=== PATIENT | male | born 1970 | race Caucasian/White ===

== ENCOUNTER → 2016-10-08 | Outpatient (CLI) | payer OTHER ==
[2016-10-08 15:38] LABS: CHLORIDE,CL 105 mmol/L (98-110); SODIUM,NA 139 mmol/L (136-146)
== END ==
LOC: MW.CHIM 15:07
PROVIDERS: ATTEND Internal Medicine
DX: E11.9 Type 2 diabetes mellitus without complications (principal); Z86.79 Personal history of other diseases of the circulatory system; E78.00 Pure hypercholesterolemia, unspecified; I10 Essential (primary) hypertension
CPT/HCPCS: 36415; 80053; 80061; 83036; 85025

== ENCOUNTER 2020-10-14 14:14 | Emergency (ER) | payer BC, OTHER ==
[2020-10-14] MEDS ORDERED: Sodium Chloride 0.9% 2.5 ML Syringe FLUSH PRN (14:15)
--- NOTE | 2020-10-14 14:29 | EDM.PDOC ---
ED HPI GENERAL MEDICAL PROBLEM - General Chief Complaint: Chest Pain Stated Complaint: CHEST PAIN Time Seen by Provider: 10/14/20 14:24 Source of Information: Reports: Patient History Limitations: Reports: No Limitations - History of Present Illness INITIAL COMMENTS - FREE TEXT/NARRATIVE: HISTORY AND PHYSICAL: History of present illness: Patient is a 50-year-old male who presents to the emergency room with complaints of chest pain that started approximately 45 minutes prior to arrival. He states over the past several days he has had a generalized cold which included loss of taste and smell recently. Chest pain started to mid chest that radiates down his right arm. He states nothing makes it better or worse. Patient denies any fever, chills, headache, change in vision, syncope or near syncope. Denies any back pain, shortness of breath or cough. Denies any abdominal pain, nausea, vomiting, diarrhea, constipation or dysuria. Has not noted any blood in urine or stool. Patient has been eating and drinking appropriately. Review of systems: As per history of present illness and below otherwise all systems reviewed and negative. Past medical history: As per history of present illness and as reviewed below otherwise noncontributory. Surgical history: As per history of present illness and as reviewed below otherwise noncontributory. Social history: See social history for further information Family history: As per history of present illness and as reviewed below otherwise noncontributory. Physical exam: General: Well developed and well nourished 50-year-old male. Alert and orientated x 3. Nontoxic in appearance and in no acute distress. Vital signs are stable and have been reviewed by me. Nursing notes were reviewed. HEENT: Atraumatic, normocephalic, pupils equal and reactive bilaterally, negative for conjunctival pallor or scleral icterus, mucous membranes moist, TMs normal bilaterally, throat clear, neck supple, nontender, trachea midline. No drooling or trismus noted. No meningeal signs. No hot potato voice noted. Lungs: Clear to auscultation bilaterally. No wheezes, rales, or rhonchi. Chest nontender. Normal work of breathing, no accessory muscles used. Heart: S1S2, regular rate and rhythm without overt murmur, gallops, or rubs. No JVD. No peripheral edema Abdomen: Soft, nondistended, nontender. Normoactive bowel sounds. Negative for masses or costovertebral tenderness. Skin: Intact, warm, dry. No lesions or rashes noted. Hematologic: No petechiae or purpra. Mucosa appropriate color and normal nail bed color and refill. Extremities: Atraumatic, moves all extremities per self without difficulty or deficits, negative for cords or calf pain. Neurovascular unremarkable. Neuro: Awake, alert, oriented. Cranial nerves II through XII unremarkable. Cerebellum unremarkable. Motor and sensory unremarkable throughout. Exam nonfocal. Psychiatric: Mood and affect are appropriate. Normal thought process. Answering questions appropriately. Notes: *This patient was seen and evaluated during the 2019 SARS-CoV-2 novel coronavirus pandemic period. Community viral transmission is ongoing at time of this encounter and the emergency department is operating under pandemic response procedures. Physical exam is within normal limits. With the recent lost of taste and smell I will test for COVID-19. Cardiac work-up pending. Initial EKG was read and reviewed by Andria. No changes in ST. Initial troponin is negative, positive COVID-19. Since the pain started only 45 minutes to an hour prior to arrival I will repeat a second troponin at 4 hours. Patient is aware and agreeable to plan of care. He states he does not want to stay for admission if the second troponin is negative. Repeat EKG done at this time. Vital signs are stable. Patient's blood sugar and hemoglobin A1c are both elevated. Patient states he is aware of this and has not been compliant with a diabetic diet or taking his medications as directed. At this time he declines wanting further treatment (insulin or adjustment of medication) as he knows he what "needs to do". Patient does appear to get anxious and heart rate does go up into the 100s, at rest he is typically in the 70s to 80s. He is low risk group according to the Wells criteria. Second troponin is elevated at 0.243. He states he is pain free at this time. VSS. I have talked with the patient about today's findings, in addition to providing specific details for plan of care. Reassessment at the time of disposition demonstrates that the patient is in no acute distress. I spoke with Dr Woods at [facility] in [place] about transferring this patient for further care and management as needs cardiology. Chuck is agreeable to accepting this patient. Patient is aware of the need for transfer. Patient will go via ground EMS and will continue to monitor. Diagnostics: CBC, CMP, Troponin, EKG, CXR, COVID Therapeutics: IV fluid, morphine, aspirin, heparin bolus and drip Prescription: None Impression: NSTEMI COVID - 19 Uncontrolled DM Plan: Transfer to [facility] Definitive disposition and diagnosis as appropriate pending reevaluation and review of above. Chest Pain Score (Numeric/FACES): 8 - Related Data Allergies Allergy/AdvReac Type Severity Reaction Status Date / Time shellfish derived Allergy Anaphylactic Verified 10/14/20 18:44 Shock Iodine solution Allergy Anaphylactic Uncoded 10/14/20 18:44 Shock Home Meds: Home Meds Aspirin [Halfprin] 1 tab PO DAILY 06/06/15 [History] Losartan Potassium 1 tab PO BEDTIME 06/06/15 [History] Dapagliflozin Propanediol [Farxiga] 5 mg PO DAILY 10/14/20 [History] sitaGLIPtin Phosphate [Januvia] 25 mg PO DAILY 10/14/20 [History] Past Medical History Cardiovascular History: Reports: Hypertension Respiratory History: Reports: Bronchitis, Recurrent, Sleep Apnea Other Respiratory History: 14 yr history smoking Gastrointestinal History: Reports: GERD, Hemorrhoids, Hepatitis Other Gastrointestinal History: Treat heartburn symptoms with 'rolaids', HX: Hepatitis C, did Interferon and last check was 'Clear' Genitourinary History: Reports: Other (See Below) Other Genitourinary History: Frequent running to bathroom at night, "think it is related to my diabetes" Musculoskeletal History: Reports: Fracture, Osteoarthritis Other Musculoskeletal History: Many fractures, Hand, Elbow, Ankle, Rt Hip, Left Leg, Sternum, Right arm, Jaw. Arthrtis to Hands Psychiatric History: Reports: Anxiety, Depression Endocrine/Metabolic History: Reports: Diabetes, Type II, Obesity/BMI 30+ Hematologic History: Reports: Blood Transfusion(s) - Infectious Disease History Infectious Disease History: Reports: Hepatitis C Other Infectious Disease History: states was treated for Hepatitis C a few years ago - Past Surgical History Cardiovascular Surgical History: Reports: Other (See Below) Other Cardiovascular Surgeries/Procedures: right chest from [facility] GI Surgical History: Reports: Colonoscopy, Other (See Below) Social & Family History - Family History Family Medical History: No Pertinent Family History Cardiac: Reports: CAD Oncologic: Reports: Lung - Caffeine Use Caffeine Use: Reports: Coffee ED ROS GENERAL - Review of Systems Review Of Systems: Comprehensive ROS is negative, except as noted in HPI. ED EXAM, GENERAL - Physical Exam Exam: See Below (See dictation) Course - Vital Signs Last Recorded V/S: Last Vital Signs Temp 98 F 10/14/20 14:20 Pulse 110 H 10/14/20 18:15 Resp 20 10/14/20 14:20 BP 128/98 H 10/14/20 18:15 Pulse Ox 96 10/14/20 18:15 - Orders/Labs/Meds Orders: Active Orders 24 hr Category Date Time Status Cardiac Monitoring [RC] . DIRECTED Care 10/14/20 14:15 Active EKG Documentation Completion [RC] STAT Care 10/14/20 14:15 Active EKG Documentation Completion [RC] STAT Care 10/14/20 15:58 Active Heparin 25,000 Units in 0.45% Nacl @ ENTER RATE (Units/ Med 10/14/20 19:15 Ordered KG/HR) (500ml) Heparin Sodium/0.45% NaCl [Heparin 25,000 Units in 1/2 NS 500 ML] 500 ml IV TITRATE Nitroglycerin [Nitrostat] Med 10/14/20 14:37 Active 0.4 mg SL Q5M PRN Sodium Chloride 0.9% [Saline Flush] Med 10/14/20 14:15 Active 10 ml FLUSH ASDIRECTED PRN Sodium Chloride 0.9% [Saline Flush] Med 10/14/20 14:15 Active 2.5 ml FLUSH ASDIRECTED PRN Saline Lock Insert [OM.PC] Stat Oth 10/14/20 14:15 Ordered Medication Orders Heparin Sodium/Sodium Chloride (Heparin 25,000 Units In 1/2 Ns 500 Ml) 500 mls @ 24.494 mls/hr IV TITRATE CAROLINE; Protocol Nitroglycerin (Nitroglycerin 0.4 Mg Tab.Sl) 0.4 mg SL Q5M PRN PRN Reason: Chest Pain Last Admin: 10/14/20 15:00 Dose: 0.4 mg Documented by: Admin: 10/14/20 14:48 Dose: 0.4 mg Documented by: EMMETT Sodium Chloride (Sodium Chloride 0.9% 10 Ml Syringe) 10 ml FLUSH ASDIRECTED PRN PRN Reason: Keep Vein Open Last Admin: 10/14/20 15:00 Dose: 10 ml Documented by: Admin: 10/14/20 14:43 Dose: 10 ml Documented by: JUAN JOSE Sodium Chloride (Sodium Chloride 0.9% 2.5 Ml Syringe) 2.5 ml FLUSH ASDIRECTED PRN PRN Reason: Keep Vein Open Last Admin: 10/14/20 14:43 Dose: 2.5 ml Documented by: JUAN JOSE Labs: Laboratory Tests 10/14/20 10/14/20 10/14/20 Range/Units 14:29 14:29 14:29 WBC 7.07 (4.0-11.0) K/uL RBC 5.72 (4.50-5.90) M/uL Hgb 18.0 H (13.0-17.0) g/dL Hct 50.3 H (38.0-50.0) % MCV 87.9 (80.0-98.0) fL MCH 31.5 (27.0-32.0) pg MCHC 35.8 (31.0-37.0) g/dL RDW Std Deviation 40.6 (28.0-62.0) fl RDW Coeff of Katie 13 (11.0-15.0) % Plt Count 148 L (150-400) K/uL MPV 11.60 (7.40-12.00) fL Neut % (Auto) 66.4 (48.0-80.0) % Lymph % (Auto) 25.3 (16.0-40.0) % [place] % (Auto) 6.2 (0.0-15.0) % Eos % (Auto) 1.8 (0.0-7.0) % Baso % (Auto) 0.3 (0.0-1.5) % Neut # (Auto) 4.7 (1.4-5.7) K/uL Lymph # (Auto) 1.8 (0.6-2.4) K/uL [place] # (Auto) 0.4 (0.0-0.8) K/uL Eos # (Auto) 0.1 (0.0-0.7) K/uL Baso # (Auto) 0.0 (0.0-0.1) K/uL Nucleated RBC % 0.0 /100WBC Nucleated RBCs # 0 K/uL Sodium 136 (136-148) mmol/L Potassium 3.3 L (3.5-5.1) mmol/L Chloride 98 (98-107) mmol/L Carbon Dioxide 24.9 (21.0-32.0) mmol/L BUN 23 H (7.0-18.0) mg/dL Creatinine 1.1 (0.8-1.3) mg/dL Est Cr Clr Drug Dosing TNP Estimated GFR (MDRD) > 60.0 ml/min Glucose 419 H (74-106) mg/dL Hemoglobin A1c 10.7 H (4.5 - 6.2) % Calcium 8.8 (8.5-10.1) mg/dL Total Bilirubin 0.5 (0.2-1.0) mg/dL AST 23 (15-37) IU/L ALT 49 (14-63) IU/L Alkaline Phosphatase 77 (46-116) U/L Troponin I < 0.050 (0.000-0.056) ng/mL Total Protein 7.8 (6.4-8.2) g/dL Albumin 3.9 (3.4-5.0) g/dL Globulin 3.9 (2.6-4.0) g/dL Albumin/Globulin Ratio 1.0 (0.9-1.6) SARS-CoV-2 RNA (WILFRIDO) (NEGATIVE) 10/14/20 10/14/20 Range/Units 15:05 18:17 WBC (4.0-11.0) K/uL RBC (4.50-5.90) M/uL Hgb (13.0-17.0) g/dL Hct (38.0-50.0) % MCV (80.0-98.0) fL MCH (27.0-32.0) pg MCHC (31.0-37.0) g/dL RDW Std Deviation (28.0-62.0) fl RDW Coeff of Katie (11.0-15.0) % Plt Count (150-400) K/uL MPV (7.40-12.00) fL Neut % (Auto) (48.0-80.0) % Lymph % (Auto) (16.0-40.0) % [place] % (Auto) (0.0-15.0) % Eos % (Auto) (0.0-7.0) % Baso % (Auto) (0.0-1.5) % Neut # (Auto) (1.4-5.7) K/uL Lymph # (Auto) (0.6-2.4) K/uL [place] # (Auto) (0.0-0.8) K/uL Eos # (Auto) (0.0-0.7) K/uL Baso # (Auto) (0.0-0.1) K/uL Nucleated RBC % /100WBC Nucleated RBCs # K/uL Sodium (136-148) mmol/L Potassium (3.5-5.1) mmol/L Chloride (98-107) mmol/L Carbon Dioxide (21.0-32.0) mmol/L BUN (7.0-18.0) mg/dL Creatinine (0.8-1.3) mg/dL Est Cr Clr Drug Dosing Estimated GFR (MDRD) ml/min Glucose (74-106) mg/dL Hemoglobin A1c (4.5 - 6.2) % Calcium (8.5-10.1) mg/dL Total Bilirubin (0.2-1.0) mg/dL AST (15-37) IU/L ALT (14-63) IU/L Alkaline Phosphatase (46-116) U/L Troponin I 0.243 H* (0.000-0.056) ng/mL Total Protein (6.4-8.2) g/dL Albumin (3.4-5.0) g/dL Globulin (2.6-4.0) g/dL Albumin/Globulin Ratio (0.9-1.6) SARS-CoV-2 RNA (WILFRIDO) POSITIVE H (NEGATIVE) Meds: Medications Generic Name Dose Route Start Last Admin Trade Name Freq PRN Reason Stop Dose Admin Heparin Sodium/Sodium Chloride 500 mls @ 24.494 mls/hr 10/14/20 19:15 Heparin 25,000 Units In 1/2 Ns 500 Ml IV TITRATE [facility] Protocol 12 UNITS/KG/HR Nitroglycerin 0.4 mg 10/14/20 14:37 10/14/20 15:00 Nitroglycerin 0.4 Mg Tab.Sl SL 0.4 mg Q5M PRN Administration Chest Pain Sodium Chloride 10 ml 10/14/20 14:15 10/14/20 15:00 Sodium Chloride 0.9% 10 Ml Syringe FLUSH 10 ml ASDIRECTED PRN Administration Keep Vein Open Sodium Chloride 2.5 ml 10/14/20 14:15 10/14/20 14:43 Sodium Chloride 0.9% 2.5 Ml Syringe FLUSH 2.5 ml ASDIRECTED PRN Administration Keep Vein Open Discontinued Medications Generic Name Dose Route Start Last Admin Trade Name Freq PRN Reason Stop Dose Admin Aspirin 324 mg 10/14/20 14:37 10/14/20 14:43 Aspirin 81 Mg Tab.Chew PO 10/14/20 14:38 324 mg ONETIME ONE Administration Heparin Sodium (Porcine) 4,000 units 10/14/20 19:07 Heparin Sodium 5,000 Units/Ml Vial IVPUSH 10/14/20 19:08 ONETIME ONE Morphine Sulfate 4 mg 10/14/20 15:01 10/14/20 15:45 Morphine 4 Mg/Ml Syringe IVPUSH 10/14/20 15:02 4 mg ONETIME ONE Administration Departure - Departure Time of Disposition: 19:10 Disposition: DC/Tfer to Acute Hospital 02 Reason for Transfer *Q: Other (Cardiology needs) Condition: Good Clinical Impression: NSTEMI (non-ST elevated myocardial infarction), COVID-19 Uncontrolled diabetes mellitus Qualifiers: Diabetes mellitus type: type 2 Glycemic state: with hyperglycemia Qualified Code(s): E11.65 - Type 2 diabetes mellitus with hyperglycemia Referrals: PCP,None [Primary Care Provider] - Forms: ED Department Discharge Sepsis Event Note (ED) - Focused Exam Vital Signs: Vital Signs Temp Pulse Resp BP BP Pulse Ox 10/14/20 18:15 110 H 128/98 H 96 10/14/20 17:45 102 H 137/87 95 10/14/20 17:15 99 144/101 H 95 10/14/20 16:45 104 H 139/101 H 95 10/14/20 16:15 109 H 141/104 H 97 10/14/20 15:00 131/95 H 10/14/20 14:48 152/101 H 10/14/20 14:20 98 F 70 20 152/101 H 95 - My Orders Last 24 Hours: My Active Orders 10/14/20 14:15 Cardiac Monitoring [RC] . DIRECTED EKG Documentation Completion [RC] STAT Sodium Chloride 0.9% [Saline Flush] 10 ml FLUSH ASDIRECTED PRN Sodium Chloride 0.9% [Saline Flush] 2.5 ml FLUSH ASDIRECTED PRN Saline Lock Insert [OM.PC] Stat 10/14/20 14:37 Nitroglycerin [Nitrostat] 0.4 mg SL Q5M PRN 10/14/20 15:58 EKG Documentation Completion [RC] STAT 10/14/20 19:15 Heparin 25,000 Units in 0.45% Nacl @ ENTER RATE (Units/KG/HR) (500ml) Heparin Sodium/0.45% NaCl [Heparin 25,000 Units in 1/2 NS 500 ML] 500 ml IV TITRATE - Assessment/Plan Last 24 Hours: My Active Orders 10/14/20 14:15 Cardiac Monitoring [RC] . DIRECTED EKG Documentation Completion [RC] STAT Sodium Chloride 0.9% [Saline Flush] 10 ml FLUSH ASDIRECTED PRN Sodium Chloride 0.9% [Saline Flush] 2.5 ml FLUSH ASDIRECTED PRN Saline Lock Insert [OM.PC] Stat 10/14/20 14:37 Nitroglycerin [Nitrostat] 0.4 mg SL Q5M PRN 10/14/20 15:58 EKG Documentation Completion [RC] STAT 10/14/20 19:15 Heparin 25,000 Units in 0.45% Nacl @ ENTER RATE (Units/KG/HR) (500ml) Heparin Sodium/0.45% NaCl [Heparin 25,000 Units in 1/2 NS 500 ML] 500 ml IV TITRATE
[2020-10-14] MEDS ORDERED: Aspirin 81 MG Tab.Chew PO ONE (14:37)
[2020-10-14] MEDS: Sodium Chloride 0.9% 10 ML Syringe FLUSH PRN ×2 (14:43→15:00)
[2020-10-14] MEDS: Nitroglycerin 0.4 MG Tab.SL SL PRN ×2 (14:48→15:00)
[2020-10-14 15:00] LABS: BLOOD UREA NITROGEN,BUN 23 mg/dL (7.0-18.0); CARBON DIOXIDE,CO2 24.9 mmol/L (21.0-32.0); CHLORIDE,CL 98 mmol/L (98-107); GLUCOSE RANDOM 419 mg/dL (74-106); POTASSIUM,K 3.3 mmol/L (3.5-5.1); SODIUM,NA 136 mmol/L (136-148)
[2020-10-14] MEDS ORDERED: Morphine 4 MG/ML Syringe IVPUSH ONE (15:01)
[2020-10-14 15:52] LABS: HEMOGLOBIN A1C 10.7 %
--- NOTE | 2020-10-14 16:25 | PCM.EKG ---
#1 Interpretation EKG Date: 10/14/20 Time: 14:16 Rhythm: NSR Rate (Beats/Min): 107 [place]: Normal P-Wave: Present QRS: Wide ST-T: Normal QT: Normal Comparison: NA - No Prior EKG (Sinus Tachycardia)
--- NOTE | 2020-10-14 16:59 | CR ---
Indication: Testing. COVID positive. Technique: AP portable view of the chest. Comparison: None Findings: The heart is normal size. The lungs are relatively clear. There is minimal opacity in the right lung base, atelectasis versus ground-glass opacity. No pleural effusion or pneumothorax is identified. Impression: Minimal opacity at the right lung base. Dictated by Stephanie Dover MD @ 10/14/2020 4:56:[address] Stephanie Dover @ Oct 14 2020 4:56PM
[2020-10-14] MEDS ORDERED: Heparin Sodium 5,000 Units/ML Vial IVPUSH ONE (19:07)
--- NOTE | 2020-10-14 19:08 | PCM.EKG ---
#2 Interpretation EKG Date: 10/14/20 Time: 16:08 Rhythm: NSR Rate (Beats/Min): 97 [place]: Normal P-Wave: Present QRS: Wide ST-T: Normal QT: Normal Comparison: No Change (today) EKG Interpretation Comments: sinus rhythm with wide QRS
--- NOTE | 2020-10-14 19:09 | PCM.EKG ---
#3 Interpretation EKG Date: 10/14/20 Time: 18:53 Rhythm: NSR Rate (Beats/Min): 97 [place]: Normal P-Wave: Present QRS: Wide ST-T: Normal QT: Normal Comparison: No Change (Today) EKG Interpretation Comments: Sinus Rhythm
[2020-10-14] MEDS ORDERED: Heparin Sodium/0.45% NaCl 500 ML IV SCH (19:15)
[2020-10-14 19:49] VITALS: BP 154/107; PULSE 91
== END 2020-10-14 20:13 ==
LOC: MW.ED 14:14
DX: U07.1 COVID-19 (principal); I21.4 Non-ST elevation (NSTEMI) myocardial infarction; E11.65 Type 2 diabetes mellitus with hyperglycemia; I10 Essential (primary) hypertension; E66.9 Obesity, unspecified; E11.9 Type 2 diabetes mellitus without complications; Z79.899 Other long term (current) drug therapy; Z91.013 Allergy to seafood; Z91.041 Radiographic dye allergy status; Z79.82 Long term (current) use of aspirin; Z68.33 Body mass index [BMI] 33.0-33.9, adult
CPT/HCPCS: 36415; 71045; 80053; 82947; 83036; 84484; 85025; 87635; 93005; 96365; 96375; 99285; A9270; J1644; J2270; 93010; U0002

== ENCOUNTER 2020-11-28 03:19 | Emergency (ER) | payer BC ==
[2020-11-28] MEDS ORDERED: Morphine 4 MG/ML Syringe IVPUSH ONE (03:57)
[2020-11-28 04:01] LABS: BLOOD UREA NITROGEN,BUN 19 mg/dL (7.0-18.0); CARBON DIOXIDE,CO2 23.6 mmol/L (21.0-32.0); CHLORIDE,CL 102 mmol/L (98-107); GLUCOSE RANDOM 248 mg/dL (74-106); SODIUM,NA 136 mmol/L (136-148)
[2020-11-28] MEDS ORDERED: Ondansetron 4 MG/2 ML SDV ONE (04:11)
[2020-11-28] MEDS ORDERED: Ondansetron 4 MG/2 ML SDV IVPUSH ONE (04:14)
--- NOTE | 2020-11-28 04:16 | CR ---
INDICATION: Shortness of breath, recent thoracentesis status post coronary artery bypass graft TECHNIQUE: Chest radiograph 1 view COMPARISON: 10/14/2020 FINDINGS: Moderate degradation of image quality noted due to body habitus. Mediastinum: Interval median sternotomy and coronary artery bypass grafting (CABG) noted. Moderate to severe cardiomegaly is noted and increase compared to prior exam. Lung: Mild reticular interstitial opacities with Bettie B lines noted in the left lower lung zone. No sign of pleural effusion seen. No pneumothorax is identified. Bone and Soft tissue: Unremarkable for age. IMPRESSIONS: 1. Moderate to severe cardiomegaly is noted and increase compared to prior exam. 2. Mild reticular interstitial opacities with Bettie B lines noted in the left lower lung zone. Findings may be due to basilar interstitial pulmonary edema. Dictated by Carlos Blunt MD @ 11/28/2020 4:14:38 AM Dictated by: Carlos Blunt MD @ 11/28/2020 04:14:55 (Electronically Signed)
[2020-11-28] MEDS ORDERED: Furosemide 40 MG/4 ML VIAL IVPUSH ONE (04:41)
--- NOTE | 2020-11-28 04:47 | EDM.PDOC ---
ED HPI GENERAL MEDICAL PROBLEM - General Chief Complaint: Respiratory Problem Stated Complaint: SHORTNESS OF BREATH; RECENT HEART SURGERY Time Seen by Provider: 11/28/20 03:25 - History of Present Illness INITIAL COMMENTS - FREE TEXT/NARRATIVE: CHIEF COMPLAINT(S): Dyspnea HISTORY OF PRESENT ILLNESS: This is a 50-year-old man with a past medical history of NSTEMI and recent CABG who was discharged yesterday from [facility] in [place] after bilateral thoracentesis for pleural effusion who comes to the emergency department with a chief complaint of dyspnea. The patient states that he was discharged home and when he got home when he lays down he feels like he is short of breath and gurgling. He states that this feels similar when he had the pleural effusions. He denies any chest pain, abdominal pain, nausea or vomiting. He states that he does have some mild shortness of breath on exertion. He denies any headache, blurry vision, numbness, tingling, or weakness. He denies any abdominal distention. He states he is mainly concerned that he has bilateral pleural effusions again. REVIEW OF SYSTEMS: Constitutional: Denies fever, chills. Eyes: Denies eye pain Ears, Nose, Mouth, & Throat: Denies earache Cardiovascular: Denies chest pain Respiratory: Positive shortness of breath, orthopnea, dyspnea on exertion gastrointestinal: Denies Nausea, vomiting, diarrhea, hematochezia. Genitourinary: Denies hematuria Skin:Denies a rash MSK: Denies joint pain Neurological: Denies blurred vision, numbness, tingling, weakness Psychiatric: Denies depression PAST MEDICAL HISTORY: As per history of present illness and as reviewed below otherwise noncontributory. SURGICAL HISTORY: As per history of present illness and as reviewed below otherwise noncontributory. SOCIAL HISTORY: As per history of present illness and as reviewed below otherwise noncontributory. FAMILY HISTORY: As per history of present illness and as reviewed below otherwise noncontributory. EXAMINATION OF ORGAN SYSTEMS/BODY AREAS: Constitutional: Blood pressure is 108/68, heart rate 96, respiratory rate 25 with an oxygen saturation 95% on room air. Temperature 36.5 General: Middle-aged man who appears to be mildly anxious Psychiatric: Appears mildly anxious but is cooperative Eyes: No scleral icterus or conjunctival erythema ENMT: Moist mucous membranes. No pharyngeal erythema Cardiovascular: Regular, rate, and rhythm. No gallops, murmurs, or rubs. Bilateral upper extremity pulses symmetric and intact. 1+ bilateral lower extremity edema. No JVD. Respiratory: Lungs clear to auscultation bilaterally. No wheezes, rales, or rhonchi. Patient is tachypneic but he is speaking in full sentences and does not appear to be struggling to breathe. Gastrointestinal: Soft, non-tender, non-distended. Normoactive bowel sounds Genitourinary: No suprapubic tenderness Musculoskeletal: Normal range of motion. Skin: No lesions or abrasions. Neurological: Alert, GCS 15 MEDICAL DECISION MAKING AND COURSE IN THE ED WITH INTERPRETATION/REVIEW OF DIAGNOSTIC STUDIES: This is a 50-year-old with a past medical history of recent NSTEMI status post CABG and thoracentesis for bilateral pleural effusions who was discharged from [facility] in [place] yesterday who comes to the emergency department with concerns for orthopnea, dyspnea on exertion and shortness of breath. The patient does have lower extremity edema on examination. The patient states that this edema is similar to when he was in the hospital and has not increased. Given that he is not having any chest pain he states this is not similar to last time. I did discuss with him that I would like to obtain a cardiac work-up. Will obtain EKG. EKG was obtained which did not reveal any acute signs of ischemia. I did provide the patient with 4 mg of IV morphine for pain. We did place the patient on cardiac technician and pulse oximetry. wireless store manager did reveal sinus rhythm and pulse oximetry with good waveform was 95 to 96% on room air. Differential at this time does include pneumonia, ACS, CHF. CHF is most likely given the recent CABG and bilateral thoracentesis. The patient is on torsemide at home. I did perform a bedside cardiac ultrasound and lung exam. Bilateral lungs do not reveal any large pleural effusion. There was occasional B-lines without any hepatization of the lung. Multiple windows of the heart were obtained. The patient's cardiac activity did appear to be mildly decreased and there was no pericardial effusion. There was no evidence of D sign or right heart strain. Laboratory: CBC reveals a normocytic anemia with a hemoglobin of 11.2 and hematocrit of 34.7. BMP reveals mild elevation in BUN at 19, hyperglycemia 248. Magnesium is normal. Troponin is negative. BNP is 515. The radiological images were viewed by myself along with reading the report from the radiologist. Chest x-ray reveals moderate to severe cardiomegaly which is increased from our prior examination. There is mild reticular interstitial opacities with curly B- lines in the left lower lung zone. No other acute cardiopulmonary process. After labs and imaging I did contact the patient's cardiothoracic surgeon Dr. Diaz and [facility] in [place] and did discuss the case with him. He states that at this time that he does not believe that the patient needs admission or transfer. He states that the patient should continue to take torsemide at home. He states that this should improve. I did discuss my discussion with his cardiothoracic surgeon. I did offer the patient observation admission for mild CHF exacerbation. The patient would like to go home at this time. Therefore I provided the patient with 40 mg of IV Lasix. He is to take his home dose of torsemide and follow-up with his cardiothoracic and museum educator. I did discuss strict return precautions with the patient. He was amenable to discharge at this time and had no further questions. DISPOSITION: The patient was discharged home in stable condition. The patient will follow up with his cardiothoracic surgeon and museum educator at his scheduled appointment CONDITION: Fair PROCEDURES: None FINAL IMPRESSION(S)/DIAGNOSES: 1. Acute dyspnea on exertion likely secondary to mild CHF exacerbation versus anxiety Eduardo Ayers M.D. - Related Data Allergies Allergy/AdvReac Type Severity Reaction Status Date / Time shellfish derived Allergy Anaphylactic Verified 11/28/20 03:36 Shock Iodine solution Allergy Anaphylactic Uncoded 11/28/20 03:36 Shock Home Meds: Home Meds Aspirin [Halfprin] 81 mg PO DAILY 06/06/15 [History] ALPRAZolam [Xanax] 0.25 mg PO BID 11/28/20 [History] Dapagliflozin Propanediol [Farxiga] 10 mg PO DAILY 11/28/20 [History] Hydrochlorothiazide/Losartan [Hyzaar 100-25 MG] 1 tab PO DAILY 11/28/20 [History] Magnesium Oxide 800 mg PO BID 11/28/20 [History] Metoprolol Succinate 25 mg PO BID 11/28/20 [History] Nortriptyline 50 mg PO DAILY 11/28/20 [History] Potassium Chloride 20 meq PO TID 11/28/20 [History] Semaglutide [Ozempic] 1 mg SUBCUT Q7D 11/28/20 [History] Ticagrelor [Brilinta] 90 mg PO BID 11/28/20 [History] Torsemide 20 mg PO DAILY 11/28/20 [History] Torsemide 20 mg PO DAILY 11/28/20 [History] Zolpidem [Ambien] 10 mg PO DAILY 11/28/20 [History] amLODIPine [Norvasc] 10 mg PO DAILY 11/28/20 [History] atorvaSTATin [Lipitor] 49 mg PO DAILY 11/28/20 [History] guaiFENesin [Guaifenesin] 1,200 mg PO BID 11/28/20 [History] oxyCODONE 5 mg PO Q6H 11/28/20 [History] Past Medical History HEENT History: Reports: None Cardiovascular History: Reports: Heart Failure, Hypertension Respiratory History: Reports: Bronchitis, Recurrent, Sleep Apnea Other Respiratory History: 14 yr history smoking Gastrointestinal History: Reports: GERD, Hemorrhoids, Hepatitis Other Gastrointestinal History: Treat heartburn symptoms with 'rolaids', HX: Hepatitis C, did Interferon and last check was 'Clear' Genitourinary History: Reports: Other (See Below) Other Genitourinary History: Frequent running to bathroom at night, "think it is related to my diabetes" Musculoskeletal History: Reports: Fracture, Osteoarthritis Other Musculoskeletal History: Many fractures, Hand, Elbow, Ankle, Rt Hip, Left Leg, Sternum, Right arm, Jaw. Arthrtis to Hands Psychiatric History: Reports: Anxiety, Depression Endocrine/Metabolic History: Reports: Diabetes, Type II, Obesity/BMI 30+ Hematologic History: Reports: Blood Transfusion(s) - Infectious Disease History Infectious Disease History: Reports: Hepatitis C Other Infectious Disease History: states was treated for Hepatitis C a few years ago - Past Surgical History Cardiovascular Surgical History: Reports: Coronary Artery Bypass, Other (See Below) Other Cardiovascular Surgeries/Procedures: right chest from [facility] GI Surgical History: Reports: Colonoscopy, Other (See Below) Other GI Surgeries/Procedures: Hemorrhoidectomy '2008 Social & Family History - Family History Family Medical History: No Pertinent Family History Cardiac: Reports: CAD Oncologic: Reports: Lung - Tobacco Use Tobacco Use Status *Q: Former Tobacco User Years of Tobacco use: 10 Packs/Tins Daily: 1.5 Used Tobacco, but Quit: Yes Month/Year Tobacco Last Used: 10/28 - Caffeine Use Caffeine Use: Reports: Coffee - Recreational Drug Use Recreational Drug Use: No ED ROS GENERAL - Review of Systems Review Of Systems: See Below ED EXAM, GENERAL - Physical Exam Exam: See Below Course - Vital Signs Last Recorded V/S: Last Vital Signs Temp 36.5 C 11/28/20 03:30 Pulse 95 11/28/20 04:49 Resp 16 11/28/20 04:49 BP 111/79 11/28/20 04:49 Pulse Ox 96 11/28/20 04:49 - Orders/Labs/Meds Labs: Laboratory Tests 11/28/20 11/28/20 11/28/20 Range/Units 03:25 03:25 03:25 WBC 6.21 (4.0-11.0) K/uL RBC 3.86 L (4.50-5.90) M/uL Hgb 11.2 L (13.0-17.0) g/dL Hct 34.7 L (38.0-50.0) % MCV 89.9 (80.0-98.0) fL MCH 29.0 (27.0-32.0) pg MCHC 32.3 (31.0-37.0) g/dL RDW Std Deviation 46.9 (28.0-62.0) fl RDW Coeff of Katie 14 (11.0-15.0) % Plt Count 196 (150-400) K/uL MPV 10.10 (7.40-12.00) fL Neut % (Auto) 71.7 (48.0-80.0) % Lymph % (Auto) 18.0 (16.0-40.0) % Trigg % (Auto) 6.0 (0.0-15.0) % Eos % (Auto) 4.0 (0.0-7.0) % Baso % (Auto) 0.3 (0.0-1.5) % Neut # (Auto) 4.5 (1.4-5.7) K/uL Lymph # (Auto) 1.1 (0.6-2.4) K/uL Trigg # (Auto) 0.4 (0.0-0.8) K/uL Eos # (Auto) 0.3 (0.0-0.7) K/uL Baso # (Auto) 0.0 (0.0-0.1) K/uL Nucleated RBC % 0.0 /100WBC Nucleated RBCs # 0 K/uL Sodium 136 (136-148) mmol/L Potassium 4.0 (3.5-5.1) mmol/L Chloride 102 (98-107) mmol/L Carbon Dioxide 23.6 (21.0-32.0) mmol/L BUN 19 H (7.0-18.0) mg/dL Creatinine 1.2 (0.8-1.3) mg/dL Est Cr Clr Drug Dosing TNP Estimated GFR (MDRD) > 60.0 ml/min Glucose 248 H (74-106) mg/dL Calcium 9.1 (8.5-10.1) mg/dL Magnesium 2.1 (1.8-2.4) mg/dL Troponin I < 0.050 (0.000-0.056) ng/mL B-Natriuretic Peptide 515 H (<100) PG/ML Meds: Medications Discontinued Medications Generic Name Dose Route Start Last Admin Trade Name Freq PRN Reason Stop Dose Admin Furosemide 40 mg 11/28/20 04:41 11/28/20 04:49 Furosemide 40 Mg/4 Ml Vial IVPUSH 11/28/20 04:42 40 mg NOW ONE Administration Morphine Sulfate 4 mg 11/28/20 03:57 11/28/20 04:04 Morphine 4 Mg/Ml Syringe IVPUSH 11/28/20 03:58 4 mg ONETIME ONE Administration Ondansetron HCl Confirm 11/28/20 04:11 11/28/20 04:13 Ondansetron 4 Mg/2 Ml Sdv Administered 11/28/20 04:12 4 mg Dose Administration 4 mg .ROUTE .STK-MED ONE Ondansetron HCl 4 mg 11/28/20 04:14 11/28/20 04:15 Ondansetron 4 Mg/2 Ml Sdv IVPUSH 11/28/20 04:15 Not Given ONETIME ONE Departure - Departure Time of Disposition: 04:46 Disposition: Home, Self-Care 01 Condition: Fair Clinical Impression: Congestive heart failure - Discharge Information *PRESCRIPTION DRUG MONITORING PROGRAM REVIEWED*: No *COPY OF PRESCRIPTION DRUG MONITORING REPORT IN PATIENT SIENNA: No Instructions: Heart Failure, Self Care, Heart Failure, Diagnosis, [id number], Preventing Heart Failure Referrals: Cameron Mohr MD [Primary Care Provider] - Forms: ED Department Discharge Additional Instructions: Mr. Negron you were evaluated on an emergent basis today. During your emergency department stay your oxygen was normal and your blood pressure was also normal. Your labs did indicate a possible heart failure exacerbation and your chest x-ray did not show a lot of fluid in your lungs.. I did discuss with Dr. Diaz who did not recommend transfer and recommended to continue your diuretics. I did offer you admission so that we can provide you with the diuretics IV. You elected to treat with diuretics at home. If you have worsening shortness of breath, chest pain, feel like you are going to pass out I would like you to return to the emergency department. Otherwise please follow- up with cardiothoracic surgery and Dr. Jensen at your scheduled appointments. I would call them tomorrow to update them on your status. They may have further recommendations. [facility] - [facility] [address] [place] [address] [place] [address] The patient is informed of any results of their evaluation and diagnostic workup and all questions are answered. They are given discharge instructions and return precautions. The patient is stable for discharge. The patient states they understand and agree with the plan and that they will return if their symptoms get worse or if they have any new concerns. The following information is given to patients seen in the emergency department who are being discharged to home. This information is to outline your options for follow-up care. We provide all patients seen in our emergency department with a follow-up referral. The need for follow-up, as well as the timing and circumstances, are variable depending upon the specifics of your emergency department visit. If you don't have a primary care physician on staff, we will provide you with a referral. We always advise you to contact your personal physician following an emergency department visit to inform them of the circumstance of the visit and for follow-up with them and/or the need for any referrals to a consulting specialist. The emergency department will also refer you to a specialist when appropriate. This referral assures that you have the opportunity for follow-up care with a specialist. All of these measure are taken in an effort to provide you with optimal care, which includes your follow-up. Under all circumstances we always encourage you to contact your private p hysician who remains a resource for coordinating your care. When calling for follow-up care, please make the office aware that this follow-up is from your recent emergency room visit. If for any reason you are refused follow-up, please contact the Emergency Department at and asked to speak to the emergency department charge nurse. Sepsis Event Note (ED) - Evaluation Sepsis Screening Result: No Definite Risk - Focused Exam Vital Signs: Vital Signs Temp Pulse Resp BP Pulse Ox 11/28/20 04:49 95 16 111/79 96 11/28/20 03:30 36.5 C 96 25 H 108/68 95
[2020-11-28 04:50] VITALS: BP 111/79; PULSE 95
--- NOTE | 2020-11-28 05:24 | PCM.EKG ---
#1 Interpretation EKG Date: 11/28/20 Time: 03:23 Rhythm: NSR Rate (Beats/Min): 96 Pinson: Normal P-Wave: Present QRS: Wide ST-T: Normal QT: Normal Comparison: No Change (10/14/20) EKG Interpretation Comments: Sinus Rhythm
== END 2020-11-28 04:55 | disposition home or self-care (01) ==
LOC: MW.ED 03:19
DX: I11.0 Hypertensive heart disease with heart failure (principal); I50.9 Heart failure, unspecified; E11.9 Type 2 diabetes mellitus without complications; E66.9 Obesity, unspecified; I25.2 Old myocardial infarction; Z79.82 Long term (current) use of aspirin; Z68.30 Body mass index [BMI] 30.0-30.9, adult; Z91.041 Radiographic dye allergy status; Z91.013 Allergy to seafood; Z87.891 Personal history of nicotine dependence; Z95.1 Presence of aortocoronary bypass graft; Z79.899 Other long term (current) drug therapy
CPT/HCPCS: 36415; 71045; 80048; 83735; 83880; 84484; 85025; 93005; 96374; 96375; 99285; J1940; J2270; J2405

== ENCOUNTER 2021-03-05 13:08 | Emergency (ER) | payer OTHER, BC ==
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
[2021-03-05] MEDS ORDERED: Ondansetron 4 MG/2 ML SDV IVPUSH ONE (13:25)
[2021-03-05] MEDS ORDERED: Morphine 4 MG/ML Syringe IVPUSH ONE ×3 (13:25→16:13)
--- NOTE | 2021-03-05 13:52 | CR ---
INDICATION: Chest pain TECHNIQUE: Chest 1 view. COMPARISON: 11/28/2020 FINDINGS: Cardiovascular and mediastinum: The heart size. Sternotomy wires noted. Mediastinum is within normal limits. Lungs and pleural space: Lungs are clear. No sign of infiltrate or mass. No sign of pleural effusion. No pneumothorax. Bones and soft tissues: No significant findings. IMPRESSION: No acute pulmonary or cardiac abnormalities.. Dictated by Deuce Mccrary MD @ 03/05/2021 1:49:37 PM (Electronically Signed)
[2021-03-05 14:23] LABS: BLOOD UREA NITROGEN,BUN 17 mg/dL (7.0-18.0); CARBON DIOXIDE,CO2 24.5 mmol/L (21.0-32.0); CHLORIDE,CL 100 mmol/L (98-107); GLUCOSE RANDOM 365 mg/dL (74-106); POTASSIUM,K 3.8 mmol/L (3.5-5.1); SODIUM,NA 137 mmol/L (136-148)
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
[2021-03-05] MEDS: HYDROmorphone 1 MG/ML Syringe IVPUSH ONE ×2 (15:29→16:06)
[2021-03-05] MEDS ORDERED: Morphine 10 MG/ML Syringe IVPUSH ONE (15:34)
[2021-03-05] MEDS ORDERED: Morphine 2 MG/ML SYRINGE ONE (16:13)
[2021-03-05] MEDS ORDERED: Morphine 4 MG/ML Syringe ONE (16:13)
[2021-03-05] MEDS ORDERED: Morphine 2 MG/ML SYRINGE IVPUSH ONE (16:14)
[2021-03-05 16:49] VITALS: BP 128/98; PULSE 95
== END 2021-03-05 16:46 | disposition home or self-care (01) ==
LOC: MW.ED 13:08
DX: S20.211A Contusion of right front wall of thorax, initial encounter (principal); I11.0 Hypertensive heart disease with heart failure; I50.9 Heart failure, unspecified; M19.90 Unspecified osteoarthritis, unspecified site; I25.810 Atherosclerosis of coronary artery bypass graft(s) without angina pectoris; E11.9 Type 2 diabetes mellitus without complications; E66.9 Obesity, unspecified; Z68.31 Body mass index [BMI] 31.0-31.9, adult; Z86.16 Personal history of COVID-19; Z91.013 Allergy to seafood; Z88.8 Allergy status to other drugs, medicaments and biological substances; Z79.899 Other long term (current) drug therapy; Z79.82 Long term (current) use of aspirin; V29.9XXA Motorcycle rider (driver) (passenger) injured in unspecified traffic accident, initial encounter
CPT/HCPCS: 36415; 71045; 71250; 80053; 82947; 83735; 83880; 84484; 85025; 93005; 96374; 96375; 96376; 99285; J2270; J2405; J1170

== ENCOUNTER 2021-03-11 09:17 | Emergency (ER) | payer OTHER, BC ==
[2021-03-11] MEDS ORDERED: Aspirin 81 MG Tab.Chew PO ONE (09:28)
[2021-03-11] MEDS ORDERED: Alum Hydrox/Mag Hydrox/Simeth 15 ML, Lidocaine 2% 5 ML PO ONE ×2 (09:28)
[2021-03-11] MEDS ORDERED: Famotidine 20 MG Tab PO ONE (09:28)
--- NOTE | 2021-03-11 09:33 | PCM.EKG ---
#1 Interpretation EKG Date: 03/11/21 Time: 09:19 Rhythm: NSR Rate (Beats/Min): 94 [place]: Normal P-Wave: Present QRS: Normal ST-T: Normal QT: Normal RI/PQ Interval: 230 Comparison: No Change (03/05/21) EKG Interpretation Comments: Sinus Rhythm with Type I AV block
[2021-03-11] MEDS ORDERED: Lidocaine 5% 700 MG Patch TRDERM ONE (09:36)
[2021-03-11] MEDS ORDERED: Morphine 4 MG/ML Syringe IVPUSH ONE (09:42)
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
--- NOTE | 2021-03-11 10:32 | CR ---
INDICATION: Chest pain and SOB. TECHNIQUE: Upright portable AP image of the chest. COMPARISON: Chest CT and chest x-ray of 03/05/2021. FINDINGS: No significant change. Lungs low in volume, essentially clear. No pleural effusion. Stable borderline cardiomegaly. Pulmonary veins normal in caliber. Mediastinal postop changes, as before. No significant bony abnormality. IMPRESSION: No significant change. No active disease. Dictated by Keo Barnett MD @ 03/11/2021 10:31:43 AM (Electronically Signed)
[2021-03-11 10:57] LABS: BLOOD UREA NITROGEN,BUN 16 mg/dL (7.0-18.0); CARBON DIOXIDE,CO2 22.4 mmol/L (21.0-32.0); CHLORIDE,CL 100 mmol/L (98-107); GLUCOSE RANDOM 284 mg/dL (74-106); POTASSIUM,K 3.3 mmol/L (3.5-5.1); SODIUM,NA 136 mmol/L (136-148)
[2021-03-11] MEDS ORDERED: Magnesium Oxide 400 MG Tab PO ONE (11:04)
[2021-03-11] MEDS ORDERED: Potassium Chloride 10% 20 MEQ/15 ML Soln 30 ML UD Cup PO ONE (11:04)
--- NOTE | 2021-03-11 11:25 | CT ---
INDICATION: Right-sided abdomen pain. TECHNIQUE: CT abdomen and pelvis without contrast. COMPARISON: None. FINDINGS: Lower chest: Unremarkable. Liver: Normal in size and attenuation. No suspicious masses. Gallbladder and bile ducts: No stones or inflammation. No biliary dilatation. Pancreas: Unremarkable. No mass or inflammation. Spleen: Normal in size. No masses. Adrenal glands: Normal in size. No nodules. Kidneys: Normal in size. No suspicious masses, stones, or hydronephrosis. GI tract: Unremarkable. Normal in caliber. No sign of mass or inflammation. Normal appendix. Vasculature: Unremarkable. Lymph nodes: No lymphadenopathy. Abdominal wall/Omentum/Peritoneum: Unremarkable. No sign of mass or infiltration. No free air or significant free fluid. Pelvis: Unremarkable. No pelvic masses. Bones: Unremarkable for age. IMPRESSION: Unremarkable CT of the abdomen and pelvis. No findings to explain right-sided abdominal pain. Please note that all CT scans at this facility use dose modulation, iterative reconstruction, and/or weight-based dosing when appropriate to reduce radiation dose to as low as reasonably achievable. Dictated by Fred Acuña MD @ 03/11/2021 11:24:19 AM (Electronically Signed)
[2021-03-11 11:43] VITALS: BP 132/97; PULSE 97
== END 2021-03-11 12:05 | disposition home or self-care (01) ==
LOC: MW.ED 09:17
DX: S20.211A Contusion of right front wall of thorax, initial encounter (principal); I25.10 Atherosclerotic heart disease of native coronary artery without angina pectoris; I11.0 Hypertensive heart disease with heart failure; I50.9 Heart failure, unspecified; E11.9 Type 2 diabetes mellitus without complications; E66.9 Obesity, unspecified; Z68.30 Body mass index [BMI] 30.0-30.9, adult; Z91.030 Bee allergy status; Z88.8 Allergy status to other drugs, medicaments and biological substances; Z79.82 Long term (current) use of aspirin; Z79.899 Other long term (current) drug therapy; Z95.1 Presence of aortocoronary bypass graft; Z87.891 Personal history of nicotine dependence; Z86.16 Personal history of COVID-19; V29.9XXA Motorcycle rider (driver) (passenger) injured in unspecified traffic accident, initial encounter; Y92.410 Unspecified street and highway as the place of occurrence of the external cause
CPT/HCPCS: 36415; 71045; 74176; 80048; 83735; 84484; 85025; 93005; 96374; 99284; A9270; J2270

== ENCOUNTER 2022-08-12 13:28 | Emergency (ER) | payer BC ==
[2022-08-12] MEDS ORDERED: Ondansetron 4 MG/2 ML SDV IVPUSH ONE (13:36)
[2022-08-12] MEDS ORDERED: Nitroglycerin 0.4 MG Tab.SL SL PRN (13:36)
[2022-08-12] MEDS ORDERED: Nitroglycerin 0.4 MG Tab.SL ONE (13:37)
[2022-08-12] MEDS ORDERED: Ondansetron 4 MG/2 ML SDV ONE (13:37)
[2022-08-12] MEDS ORDERED: Morphine 4 MG/ML Syringe IVPUSH ONE ×2 (13:47→15:35)
[2022-08-12 14:12] LABS: CARBON DIOXIDE,CO2 24.1 mmol/L (21.0-32.0)
[2022-08-12] MEDS ORDERED: Potassium Chloride 20 MEQ Tab.ER PO ONE (14:23)
[2022-08-12 14:26] LABS: CORONAVIRUS COVID-19 NAA NEGATIVE (NEGATIVE); INFLUENZA A NAA NEGATIVE (NEGATIVE); INFLUENZA B NAA NEGATIVE (NEGATIVE)
[2022-08-12 16:36] VITALS: BP 122/71; PULSE 96
== END 2022-08-12 16:35 | disposition home or self-care (01) ==
LOC: MW.ED 13:28
DX: R07.89 Other chest pain (principal); R06.02 Shortness of breath; I10 Essential (primary) hypertension; M19.90 Unspecified osteoarthritis, unspecified site; E11.9 Type 2 diabetes mellitus without complications; E66.9 Obesity, unspecified; Z68.30 Body mass index [BMI] 30.0-30.9, adult; Z87.891 Personal history of nicotine dependence; Z91.013 Allergy to seafood; Z91.041 Radiographic dye allergy status; Z79.82 Long term (current) use of aspirin; Z79.899 Other long term (current) drug therapy; Z20.822 Contact with and (suspected) exposure to COVID-19
CPT/HCPCS: 0240U; 36415; 71045; 80053; 83690; 83735; 83880; 84484; 85025; 85379; 85610; 85730; 93005; 96374; 96375; 96376; 99285; A9270; J2270; J2405; 93010; 99284